=== PATIENT | female | born 2000 | race Caucasian/White ===

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

== ENCOUNTER 2019-02-02 00:05 | Emergency (ER) | payer MEDICAID ==
--- NOTE | 2019-02-02 00:22 | EDM.PDOC ---
ED HPI GENERAL MEDICAL PROBLEM - General Stated Complaint: UTI Time Seen by Provider: 02/02/19 00:21 Source of Information: Reports: Patient History Limitations: Reports: No Limitations - History of Present Illness INITIAL COMMENTS - FREE TEXT/NARRATIVE: 18 yo female with ,frequency,and urgency of urination x 1 day.No vaginal discharge. lower abd Pain Score (Numeric/FACES): 8 - Related Data Allergies Allergy/AdvReac Type Severity Reaction Status Date / Time seasonal Allergy Other Uncoded 02/02/19 00:19 Home Meds: Home Meds Norgestimate-Ethinyl Estradiol [Tri-Linyah Tablet] 1 tab PO DAILY 12/21/17 [ History] Past Medical History - Past Health History Medical/Surgical History: Denies Medical/Surgical History Other Dermatologic History: Pt has history of cyst Social & Family History - Family History Family Medical History: Noncontributory Oncologic: Reports: Lung - Caffeine Use Caffeine Use: Reports: Coffee ED ROS GENERAL - Review of Systems Review Of Systems: ROS reveals no pertinent complaints other than HPI. ED EXAM, RENAL/ - Physical Exam Exam: See Below Exam Limited By: No Limitations General Appearance: Alert Cardiovascular: Regular Rate, Rhythm GI/Abdominal: Normal Bowel Sounds, Soft, Non-Tender, No Distention, No Abnormal Bruit (Female) Exam: Deferred Neurological: Alert Psychiatric: Flat Affect Skin Exam: Warm Course - Vital Signs Last Recorded V/S: Last Vital Signs Temp 98.4 F 02/02/19 00:05 Pulse 100 02/02/19 00:05 Resp 17 02/02/19 00:05 BP 134/79 02/02/19 00:05 Pulse Ox 100 02/02/19 00:05 - Orders/Labs/Meds Labs: Laboratory Tests 02/02/19 Range/Units 00:14 Urine Color Yellow (YELLOW) Urine Appearance Slightly cloudy (CLEAR) Urine pH 7.0 H (5.0-6.5) Ur Specific [place] 1.020 (1.010-1.025) Urine Protein 100 H (NEGATIVE) mg/dL Urine Glucose (UA) Normal (NORMAL) mg/dL Urine Ketones Negative (NEGATIVE) mg/dL Urine Occult Blood Small (NEGATIVE) Urine Nitrite Negative (NEGATIVE) Urine Bilirubin Negative (NEGATIVE) Urine Urobilinogen Normal (NEGATIVE) mg/dL Ur Leukocyte Esterase Negative (NEGATIVE) Urine RBC 5-10 H (0-5) Urine WBC 0-5 (0-5) Ur Squamous Epith Cells Moderate H (NS,R,O) Urine Bacteria Moderate H (NS) Urine Mucus Moderate H (NS) Departure - Departure Time of Disposition: 00:50 Disposition: Home, Self-Care 01 Condition: Good Clinical Impression: Dysuria - Discharge Information Instructions: Dysuria Referrals: Abigail Acosta NP [Primary Care Provider] - 2 Days Forms: ED Department Discharge Additional Instructions: Push fluids see your primary care on Sunday - Problem List & Annotations (1) Dysuria SNOMED Code(s): 99140871 Code(s): R30.0 - DYSURIA Status: Acute - Problem List Review Problem List Initiated/Reviewed/Updated: Yes - Assessment/Plan Plan: Urine did not meet criteria for culture.DC home,follow up on Sunday with POP
[2019-02-02 01:39] VITALS: BP 134/79
== END 2019-02-02 00:54 | disposition home or self-care (01) ==
LOC: FB.ED 00:05
DX: R30.0 Dysuria (principal)
CPT/HCPCS: 81001; 99283

== ENCOUNTER 2019-12-19 15:02 | Emergency (ER) | payer MEDICAID ==
[2019-12-19] MEDS ORDERED: Ketorolac 60 MG/2 ML SDV IM ONE (15:24)
--- NOTE | 2019-12-19 16:31 | EDM.PDOC ---
ED HPI GENERAL MEDICAL PROBLEM - General Time Seen by Provider: 12/19/19 15:30 Source of Information: Reports: Patient History Limitations: Reports: No Limitations - History of Present Illness INITIAL COMMENTS - FREE TEXT/NARRATIVE: c/o lbp stepped out of pickup, one foot on running board, foot slipped over before 2nd foot on board, pt slid to the ground, her low back stuck the running board she landed on her buttock, head did not hit truck or ground, no head or neck pain has pain in her low back near her pelvis - Related Data Allergies Allergy/AdvReac Type Severity Reaction Status Date / Time seasonal Allergy Other Uncoded 02/02/19 00:19 Home Meds: Home Meds norgestimate-ethinyl estradioL [Tri-Linyah Tablet] 1 tab PO DAILY 12/21/17 [History] Cyclobenzaprine HCl 10 mg PO TID PRN #15 tablet 12/19/19 [Rx] Past Medical History - Past Health History Medical/Surgical History: Denies Medical/Surgical History Other Dermatologic History: Pt has history of cyst Social & Family History - Family History Family Medical History: Noncontributory Oncologic: Reports: Lung - Caffeine Use Caffeine Use: Reports: Coffee ED ROS GENERAL - Review of Systems Review Of Systems: See Below Constitutional: Reports: No Symptoms HEENT: Reports: No Symptoms Respiratory: Reports: No Symptoms Cardiovascular: Reports: No Symptoms Endocrine: Reports: No Symptoms GI/Abdominal: Reports: No Symptoms : Reports: No Symptoms Musculoskeletal: Reports: Back Pain, Other (no leg pain or numbness or weakness) Skin: Reports: No Symptoms Neurological: Reports: No Symptoms Psychiatric: Reports: No Symptoms Hematologic/Lymphatic: Reports: No Symptoms Immunologic: Reports: No Symptoms ED EXAM, GENERAL - Physical Exam Exam: See Below Exam Limited By: No Limitations General Appearance: Alert, WD/WN, Mild Distress Back Exam: Other (no spasm, normal lordosis, no muscle tender, no iliac crest tender, no SI joint tender, mild tender over lower as well as upper l-spine, skin intact, no ecchymosis or abrasions, sitting rather stiffly in w/c, good ROM LEs) Course - Orders/Labs/Meds Orders: Active Orders 24 hr Category Date Time Status Lumbar Spine 2 or 3V [CR] Stat Exams 12/19/19 15:24 Ordered Meds: Medications Discontinued Medications Generic Name Dose Route Start Last Admin Trade Name Chandanq PRN Reason Stop Dose Admin Ketorolac Tromethamine 60 mg 12/19/19 15:24 12/19/19 15:39 Toradol IM 12/19/19 15:25 60 mg ONETIME ONE Administration - Re-Assessments/Exams Free Text/Narrative Re-Assessment/Exam: 12/19/19 16:32 d/w Dr Ness who identified new compression fx of superior endplates of T12 and L1 our lumbar brace did not fit Departure - Departure Time of Disposition: 16:33 Disposition: Home, Self-Care 01 Condition: Good Clinical Impression: Compression fracture of T12 vertebra, Compression fracture of L1 vertebra - Discharge Information *PRESCRIPTION DRUG MONITORING PROGRAM REVIEWED*: Not Applicable *COPY OF PRESCRIPTION DRUG MONITORING REPORT IN PATIENT YUNG: Not Applicable Prescriptions: Cyclobenzaprine HCl 10 mg PO TID PRN #15 tablet PRN Reason: Spasms Instructions: Spinal Compression Fracture, How to Use a Back Brace Additional Instructions: For pain and inflammation and healing, take ibuprofen 200 mg 3 tabs and acetaminophen 500 mg 2 tabs 4 times a day (meals and bedtime) for 5 days, longer if needed. For spasm, as needed, take cyclobenzaprine 10 mg 1 tab up to 3 times a day. May make slightly sleepy. May take just at bedtime if desired. Use back brace when out of bed. Sleep on a firm mattress. Avoid bending, twisting or lifting over 5 pounds. See your doctor in 3-4 days. - My Orders Last 24 Hours: My Active Orders 12/19/19 15:24 Lumbar Spine 2 or 3V [CR] Stat - Assessment/Plan Last 24 Hours: My Active Orders 12/19/19 15:24 Lumbar Spine 2 or 3V [CR] Stat
--- NOTE | 2019-12-19 16:33 | CR ---
INDICATION: Slipped stepping out of struck. Struck back on running board. LUMBOSACRAL SPINE: Three views of the lumbosacral spine were obtained 12/19/19 and compared with a thoracic spine dated 12/17/16. There is again noted dextroconcave very minimal rotatory scoliosis at the thoracolumbar spine. The pedicles appear to be intact. Vertebral body and disk heights were fairly well maintained from L2 through S1. However, at T12 and L1, there are compression fractures along the cranial endplates, which are new compared with the previous examination and may represent acute compression fractures. No other findings to suggest acute abnormality was seen. IMPRESSION: Findings suggest the possibility of acute compression fractures superior endplates of T12 and L1 with very slight anterior compression also noted at T12. Report was called to Dr. Izquierdo at 1616 hours. [facility]
[2019-12-19 17:22] VITALS: BP 140/77; PULSE 99
== END 2019-12-19 16:44 | disposition home or self-care (01) ==
LOC: FB.ED 15:02
DX: S22.089A Unspecified fracture of T11-T12 vertebra, initial encounter for closed fracture (principal); S32.019A Unspecified fracture of first lumbar vertebra, initial encounter for closed fracture; Z91.048 Other nonmedicinal substance allergy status; W01.0XXA Fall on same level from slipping, tripping and stumbling without subsequent striking against object, initial encounter
CPT/HCPCS: 72100; 96372; 99283; J1885

== ENCOUNTER 2020-07-03 00:40 | Emergency (ER) | payer MEDICAID ==
--- NOTE | 2020-07-03 00:58 | EDM.PDOC ---
ED HPI GENERAL MEDICAL PROBLEM - General Stated Complaint: SOB Time Seen by Provider: 07/03/20 00:55 Source of Information: Reports: Patient History Limitations: Reports: No Limitations - History of Present Illness INITIAL COMMENTS - FREE TEXT/NARRATIVE: 20-year-old female who reports beginning one week ago she developed a cough and then approximately 2 days following that she developed nasal congestion with sinus pressure and sinus congestion. The symptoms seem to have worsened over time and tonight her cough caused her to gag and she felt short of breath with this cough and that prompted her to come to the emergency department for evaluation. She has had some phlegm production and nasal discharge both of which have been yellow. She has had no fevers or chills. She has had some nausea but no vomiting. She has been able to drink liquids well. No weakness or dizziness. No abdominal pain. She does have some tightness in her chest which she rates as a 3-4/10. It is worse with cough. There are no other associated signs or symptoms. There are no other modifying factors. Onset: Other (One week ago) Duration: Getting Worse Location: Reports: Chest Quality: Reports: Other (Tightness) Severity: Mild Improves with: Reports: Rest Worsens with: Reports: Other (Cough) Context: Reports: Other (As above.) Associated Symptoms: Reports: No Other Symptoms (Except as above.) Treatments TANK HOOP BENDER: Reports: Other (see below) (Nothing.) - Related Data Allergies Allergy/AdvReac Type Severity Reaction Status Date / Time seasonal Allergy Other Uncoded 02/02/19 00:19 Home Meds: Home Meds norgestimate-ethinyl estradioL [Tri-Linyah Tablet] 1 tab PO DAILY 12/21/17 [History] Cyclobenzaprine HCl 10 mg PO TID PRN #15 tablet 12/19/19 [Rx] Azithromycin [Zithromax] 250 mg PO QAM 4 Days #4 tablet 07/03/20 [Rx] predniSONE [Prednisone] 60 mg PO QAM 5 Days #15 tab 07/03/20 [Rx] Past Medical History Endocrine/Metabolic History: Reports: Diabetes, Type II, Obesity/BMI 30+ - Past Surgical History HEENT Surgical History: Reports: Oral Surgery (Hughes teeth extraction) Social & Family History - Family History Oncologic: Reports: Lung - Tobacco Use Tobacco Use Status *Q: Never Tobacco User - Caffeine Use Caffeine Use: Reports: Coffee - Alcohol Use Alcohol Use History: No - Living Situation & Occupation Occupation: Employed (Works at [employer] ED ROS GENERAL - Review of Systems Review Of Systems: See Below Constitutional: Reports: No Symptoms HEENT: Reports: Sinus Problem, Other (Should and sinus congestion.) Respiratory: Reports: Shortness of Breath, Cough, Sputum Cardiovascular: Reports: Other (Some chest tightness.) Endocrine: Reports: No Symptoms GI/Abdominal: Reports: Nausea. Denies: Vomiting : Reports: No Symptoms Musculoskeletal: Reports: No Symptoms Skin: Reports: No Symptoms Neurological: Reports: No Symptoms Psychiatric: Reports: No Symptoms Hematologic/Lymphatic: Reports: No Symptoms Immunologic: Reports: No Symptoms ED EXAM, GENERAL - Physical Exam Exam: See Below Exam Limited By: No Limitations General Appearance: Alert, No Apparent Distress, Obese Eye Exam: Bilateral Eye: EOMI, Normal Inspection, PERRL Ears: Normal External Exam, Hearing Grossly Normal Ear Exam: Bilateral Ear: Auricle Normal Nose: No Blood, Nasal Drainage Throat/Mouth: Normal Inspection, Normal Lips, Normal Oropharynx, Normal Voice, No Airway Compromise Head: Atraumatic, Normocephalic Neck: Normal Inspection, Supple, Non-Tender, Full Range of Motion Respiratory/Chest: No Respiratory Distress, Lungs Clear, Normal Breath Sounds, No Accessory Muscle Use, Chest Non-Tender Cardiovascular: Normal Peripheral Pulses, Regular Rate, Rhythm, No Murmur Peripheral Pulses: 2+: Radial (L), Radial (R) GI/Abdominal: Normal Bowel Sounds, Soft, Non-Tender, No Mass Back Exam: Normal Inspection, Full Range of Motion Extremities: Normal Inspection, Normal Range of Motion, Non-Tender, No Pedal Edema, Normal Capillary Refill Neurological: Alert, Oriented, CN II-XII Intact, Normal Cognition, No Motor/Sensory Deficits Skin Exam: Warm, Dry, Intact, Normal Color Course - Vital Signs Last Recorded V/S: Last Vital Signs Temp 36.7 C 07/03/20 01:14 Pulse 95 07/03/20 01:14 Resp 18 07/03/20 01:14 BP 138/87 07/03/20 01:14 Pulse Ox 98 07/03/20 01:14 - Orders/Labs/Meds Meds: Medications Discontinued Medications Generic Name Dose Route Start Last Admin Trade Name Freq PRN Reason Stop Dose Admin Azithromycin 500 mg 07/03/20 01:09 07/03/20 01:19 Zithromax PO 07/03/20 01:10 500 mg ONETIME ONE Administration Prednisone 60 mg 07/03/20 01:09 07/03/20 01:19 Prednisone PO 07/03/20 01:10 60 mg ONETIME ONE Administration - Re-Assessments/Exams Free Text/Narrative Re-Assessment/Exam: 07/03/20 01:10: Patient with sinus congestion and cough with some yellow phlegm production. She did feel somewhat short of breath with the coughing episode tonight and that caused her to present to the emergency department. She has had the symptoms for a week. She has no fever with a normal O2 saturation and her exam is reassuring with no wheezes, and no evidence of pneumonia and no increased work of breathing. The patient reports that she had covid 19 back 2 months ago[address] I will place patient on Zithromax for 5 day course with her first dose tonight and I will also place her on prednisone for a 5 day course with her first dose tonight. I discussed with her the possibility of glucose increase with the prednisone. She is aware of this and would still want this medication and she will watch her glucose readings more closely. Departure - Departure Time of Disposition: 01:20 Disposition: Home, Self-Care 01 Condition: Good Clinical Impression: Bronchitis Sinusitis Qualifiers: Sinusitis location: unspecified location Chronicity: acute Recurrence: non- recurrent Qualified Code(s): J01.90 - Acute sinusitis, unspecified - Discharge Information Prescriptions: predniSONE [Prednisone] 60 mg PO QAM 5 Days #15 tab Azithromycin [Zithromax] 250 mg PO QAM 4 Days #4 tablet Instructions: Sinusitis, Adult, [id number], Acute Bronchitis, Adult, [id number] Referrals: Abigail Acosta NP [Primary Care Provider] - Forms: ED Return to Work/School Form Additional Instructions: Your oxygen saturation was normal. Your breathing pattern appeared normal. I did not hear any evidence of a pneumonia. I think you have an upper respiratory infection with a sinus infection and possibly a bronchitis. I am placing you on Zithromax for 5 day course. I am also placing you on prednisone to help decrease the inflammation and also to help decrease your cough. Prednisone can cause your glucose is to be elevated and you should follow your glucose readings more closely while you are taking the prednisone. If your blood sugar readings become too erratic, you could stop the prednisone. You should increase your fluid intake. You can use [id number] cough suppressant. Follow-up with your primary doctor as needed. Back to the emergency department for unrelenting vomiting, worse breathing, severe weakness or any other concerning sign or symptom. Sepsis Event Note (ED) - Focused Exam Vital Signs: Vital Signs Temp Pulse Resp BP Pulse Ox 07/03/20 01:14 36.7 C 95 18 138/87 98
[2020-07-03 01:17] VITALS: BP 138/87; PULSE 95
[2020-07-03] MEDS: predniSONE 20 MG Tab PO ONE (01:19)
[2020-07-03] MEDS: Azithromycin 500 MG Tab PO ONE (01:19)
== END 2020-07-03 01:25 | disposition home or self-care (01) ==
LOC: FB.ED 00:40
DX: J01.90 Acute sinusitis, unspecified (principal); J40 Bronchitis, not specified as acute or chronic; E11.9 Type 2 diabetes mellitus without complications; E66.9 Obesity, unspecified; Z91.048 Other nonmedicinal substance allergy status
CPT/HCPCS: 99283; A9270; J7512